=== PATIENT | female | born 1995 | race African-American/Black ===

== ENCOUNTER 2020-12-20 05:36 | Emergency (ER) | payer MEDICAID ==
[~2020-12-20] VITALS: Ht 160 cm; Wt 54.4 kg
--- NOTE | 2020-12-20 06:29 | NUR ---
BIBS FOR C/O FEVER, ABD PAIN AND N/V/D SINCE 0 LAST NIGHT. PT DENIED DYSURIA OR HEMATURIA. 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 URINE SAMPLE OBTAINED. PT MBULATORY TO BED 6 ER W/ STEADY GAITS. PT WAS PLACED ON A MONITOR .VSS. WILL CONT TO MONITOR
[2020-12-20] MEDS ORDERED: ONDANSETRON HCL/PF 4 MG/2 ML VIAL ONE (06:36)
--- NOTE | 2020-12-20 06:40 | NUR ---
LINE ESTABLISHED LAC 20G, BLOOD WORK COLLECTED, SENT TO LAB.
--- NOTE | 2020-12-20 06:45 | NUR ---
URINE SAMPLE WAS SENT TO THE LAB
[2020-12-20] MEDS ORDERED: IV NS 0.9% 1,000 ML BAG IV ONE (07:00)
[2020-12-20] MEDS ORDERED: ONDANSETRON HCL/PF 4 MG/2 ML VIAL IVP ONE (07:00)
[2020-12-20 07:07] LABS: BASOPHILS % (AUTO) 0.2 % (0.0-2.0); EOSINOPHILS % (AUTO) 0.2 % (0.0-6.0); HEMATOCRIT 43 % (33-45); HEMOGLOBIN 14.6 g/dL (11.5-14.8); LYMPHOCYTES # (AUTO) 0.5 /CMM (0.8-4.8); LYMPHOCYTES % (AUTO) 6.4 % (20.0-44.0); MEAN CORPUSCULAR HGB CONC 34 g/dl (31.0-36.0); MEAN CORPUSCULAR VOLUME 89 fL (82-100); MONOCYTES # (AUTO) 0.3 /CMM (0.1-1.30); MONOCYTES % (AUTO) 4.7 % (2.0-12.0); NEUTROPHILS # (AUTO) 6.4 /CMM (1.8-8.9); NEUTROPHILS % (AUTO) 88.5 % (43.0-81.0); PLATELET COUNT (AUTO) 246 /CMM (150-450); RED BLOOD CELL COUNT(AUTO) 4.84 MIL/uL (4.0-5.2); WHITE BLOOD COUNT (AUTO) 7.2 K/uL (4.3-11.0)
[2020-12-20 07:13] LABS: BILIRUBIN,URINE NEGATIVE (NEGATIVE); COLOR,URINE YELLOW (YELLOW); LEUKOCYTE ESTERASE ,URINE NEGATIVE (NEGATIVE); NITRITE, URINE NEGATIVE (NEGATIVE); PH,URINE 8.5 (5.0-8.0); PROTEIN,URINE NEGATIVE (NEGATIVE); UGLUCOSE NEGATIVE (NEGATIVE); UROBILINOGEN,URINE 0.2 EU/dL (0.2)
[2020-12-20 07:28] LABS: CALCIUM, SERUM 9.3 mg/dL (8.5-10.1); CREATININE 0.8 mg/dL (0.6-1.3); POTASSIUM 3.4 mmol/L (3.5-5.1)
[2020-12-20 07:33] LABS: ALBUMIN 4.1 g/dL (3.4-5.0); BILIRUBIN,DIRECT 0.2 mg/dL (0.0-0.2); BILIRUBIN,TOTAL 0.9 mg/dL (0.2-1.0); TOTAL PROTEIN, SERUM 7.9 g/dL (6.4-8.2)
[2020-12-20 07:50] LABS: RBC,URINE NONE SEEN /HPF (0-2)
[2020-12-20 07:51] LABS: BACTERIA,URINE Few /HPF (None Seen); SQUAMOUS EPITHELIAL CELL,UR Moderate /HPF (None Seen); WBC,URINE NONE SEEN /HPF (0-3)
[2020-12-20] MEDS ORDERED: ONDA4TAB11 PO (08:04)
--- NOTE | 2020-12-20 08:16 | NUR ---
Patient discharged to home in stable condition. Written and verbal after care instructions given. Patient verbalizes understanding of instruction. IV removed. Catheter intact and site benign. Pressure and 4x4 applied to site. No bleeding noted.
[2020-12-20 08:17] VITALS: BP 108/68
== END 2020-12-20 08:17 | disposition home or self-care (01) ==
LOC: ER 05:41
DX: R11.2 Nausea with vomiting, unspecified (principal); R10.84 Generalized abdominal pain; F17.200 Nicotine dependence, unspecified, uncomplicated; Z79.899 Other long term (current) drug therapy
CPT/HCPCS: 99406; 36415; 80048; 80076; 81001; 83690; 84703; 85025; 96361; 96374; 99283; J2405; J7030